=== PATIENT | male | born 1980 | race American Indian/Alaskan Native ===

== ENCOUNTER 2017-07-23 11:58 | Emergency (ER) | payer OTHER ==
[2017-07-23 12:05] VITALS: BP 142/81; PULSE 80; RESP 18; TEMP 97.6; O2SAT 98
[2017-07-23] MEDS ORDERED: Bacitracin 500 Units/gm Oint Foilpak UD TOP ONE (12:11)
--- NOTE | 2017-07-23 12:12 | C.PDOC ---
History Of Present Illness 37yo male, presents to ED with complaints of right elbow pain after he slipped and fell at work earlier today. Patient denies any head injury, numbness, tingling or weakness to his arm. He has no other complaints. Time Seen by Provider: 07/23/17 12:09 Chief Complaint (Nursing): Upper Extremity Problem/Injury History Per: Patient History/Exam Limitations: no limitations Onset/Duration Of Symptoms: Mins, Waxing/Waning Quality: "Pain" Past Medical History Reviewed: Historical Data, Nursing Documentation, Vital Signs Vital Signs: Last Vital Signs Temp 97.6 F 07/23/17 12:02 Pulse 80 07/23/17 12:02 Resp 18 07/23/17 12:02 BP 142/81 07/23/17 12:02 Pulse Ox 98 07/23/17 12:33 - Medical History PMH: No Chronic Diseases Surgical History: No Surg Hx Family History: States: No Known Family Hx - Social History Hx Alcohol Use: Yes Hx Substance Use: No - Immunization History Hx Tetanus Toxoid Vaccination: No Hx Influenza Vaccination: No Hx Pneumococcal Vaccination: No Review Of Systems Except As Marked, All Systems Reviewed And Found Negative. Musculoskeletal: Positive for: Arm Pain (right elbow pain) Neurological: Negative for: Weakness, Numbness, Headache Physical Exam - Physical Exam Appears: Non-toxic, No Acute Distress Skin: Warm, Dry Head: Atraumatic, Normacephalic Eye(s): bilateral: Normal Inspection, EOMI Neck: Normal ROM, Supple Chest: Symmetrical Pulses: Left Radial: Normal, Right Radial: Normal Neurological/Psych: Oriented x3, Normal Speech Additional Physical Exam Comments: Right arm: Right elbow with no obvious deformity. superficial round 0.5cm abrasion to dorsal elbow. Elbow has normal ROM, pain with flexion. No tenderness on palpation of elbow. No swelling. Wrist, hand and digits with normal ROM, non-tender and no swelling. All other extremities with normal ROM, non-tender and no swelling. ED Course And Treatment O2 Sat by Pulse Oximetry: 98 (RA) Pulse Ox Interpretation: Normal Medical Decision Making Medical Decision Making: Impression: elbow injury Plan: xray, motrin, wound care Progress: Wound cleaned with sterile water and bacitracin applied. Elbow xray reviewed showing no fat pad sign or acute fracture. ER attending also viewed xray and agrees. Re-eval: Arm sling applied. Patient advised to ice, rest and take analgesics as needed for pain. Instruct to follow up with orthopedic or return for repeat xrays in one week if the pain persists. Disposition Counseled Patient/Family Regarding: Diagnosis, Need For Followup, Rx Given - Disposition Referrals: Antonio Olvera III, MD [Staff Provider] - Disposition: HOME/ ROUTINE Disposition Time: 12:31 Condition: STABLE Additional Instructions: Your xray was normal, no fracture. Please apply ice to area 15 minutes three times a day. Take Motrin as needed for pain every 6 hours, with food to not upset stomach. Follow up with orthopedic if pain persists over one week. 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 - Scribe Statement The provider has reviewed the documentation as recorded by the Nory Holman Provider Scribe Attestation: All medical record entries made by the Samiibdonna were at my direction and personally dictated by me. I have reviewed the chart and agree that the record accurately reflects my personal performance of the history, physical exam, medical decision making, and the department course for this patient. I have also personally directed, reviewed, and agree with the discharge instructions and disposition.
[2017-07-23] MEDS ORDERED: Bacitracin 500 Units/gm Oint Foilpak UD ONE (12:24)
--- NOTE | 2017-07-23 15:26 | RAD ---
PROCEDURE: Radiographs of the right elbow. HISTORY: pain s.p fall and injury COMPARISON: No prior. FINDINGS: BONES: No acute fracture or destructive bony lesion identified. JOINTS: Normal. No osteoarthritis. SOFT TISSUES: Calcifications cysts in the soft tissues superficial to the olecranon process are identified likely within the triceps tendon and likely represent calcific tendinopathy. JOINT EFFUSION: None. OTHER FINDINGS: None. IMPRESSION: No acute fracture or dislocation. 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
== END 2017-07-23 12:42 | disposition home or self-care (01) ==
LOC: C.ER 11:58
DX: S50.01XA Contusion of right elbow, initial encounter (principal); W01.0XXA Fall on same level from slipping, tripping and stumbling without subsequent striking against object, initial encounter; Y92.89 Other specified places as the place of occurrence of the external cause; Y99.0 Civilian activity done for income or pay